=== PATIENT | male | born 1990 | race Caucasian/White ===

== ENCOUNTER 2024-01-23 00:48 | Emergency (ER) | payer MEDICAID ==
[~2024-01-23] VITALS: Ht 165.1 cm; Wt 68.0 kg
[2024-01-23 03:30] VITALS: BP 122/91; TEMP 98
== END 2024-01-23 03:31 | disposition home or self-care (01) ==
LOC: ER 00:51
DX: J06.9 Acute upper respiratory infection, unspecified (principal); J45.909 Unspecified asthma, uncomplicated; Z20.822 Contact with and (suspected) exposure to COVID-19
CPT/HCPCS: 86403-TC; 87070-TC